=== PATIENT | male | born 1980 | race African-American/Black ===

== ENCOUNTER 2018-05-27 08:09 | Emergency (ER) | payer SELFPAY ==
[~2018-05-27] VITALS: Ht 165.1 cm; Wt 79.4 kg
[2018-05-27 08:16] VITALS: BP 120/68
--- NOTE | 2018-05-27 09:03 | RAD ---
RIBS LEFT AND PA CHEST History: Fall 1 week ago, mid left rib pain Comparison: None. Findings: Single view of the chest and 2 additional views of the left ribs are submitted. There is no infiltrate, pleural fluid, pneumothorax. Heart size is within normal limits. There is very mild smooth thoracic dextroscoliosis. There may be nondisplaced fracture of the left anterolateral seventh rib. Impression: 1. There may be nondisplaced fracture of the left anterolateral seventh rib. Electronically signed by: Roney Baugh MD (05/27/2018 9:00 AM) [id number]
[2018-05-27] MEDS ORDERED: NAPR-683 PO (09:14)
[2018-05-27] MEDS ORDERED: HYDR-3164 PO (09:14)
--- NOTE | 2018-05-27 09:15 | PHYS DOC ---
Past Medical History Past Medical History: No Pertinent History Past Surgical History: No Surgical History Additional Information: 2-1 ppd Alcohol Use: Rarely Drug Use: Marijuana Adult General Chief Complaint Chief Complaint: RIB PAIN [facility] HPI Patient is a 38 year old male who presents with complaint of left-sided rib pain after falling approximately a week ago. Patient states that he had hoped the pain would improve but pain has continued. Patient states that pain is worsened with movement of his left shoulder as well as deep breathing. He denies any cough or shortness breath. He states that nothing is improving his pain. Review of Systems Review of Systems Constitutional: Denies fever or chills [] Respiratory: Denies cough or shortness of breath [] Cardiovascular: No additional information not addressed in HPI [] GI: Denies abdominal pain, nausea, vomiting or diarrhea [] Musculoskeletal: Denies back pain or joint pain [] All other systems were reviewed and found to be within normal limits, except as documented in this note. Allergies Allergies Allergies Coded Allergies Type Severity Reaction Last Updated Verified No Known Drug Allergies 05/27/18 No Physical Exam Physical Exam Constitutional: Well developed, well nourished, no acute distress, non-toxic appearance. [] HENT: Normocephalic, atraumatic, bilateral external ears normal, oropharynx moist, no oral exudates, nose normal. [] Eyes: PERRLA, EOMI, conjunctiva normal, no discharge. [] Neck: Normal range of motion, no tenderness, supple, no stridor. [] Cardiovascular: Regular rate and rhythm, no murmur [] Lungs & Thorax: Bilateral breath sounds clear to auscultation. There is reproducible tenderness to palpation around the left mid to lower anterolateral rib margin. [] Abdomen: Bowel sounds normal, soft, no tenderness. [] Skin: Warm, dry, no erythema, no rash. [] Extremities: No tenderness, no cyanosis, no clubbing, ROM intact, no edema. [] Neurologic: Alert and oriented X 3, normal motor function, normal sensory function, no focal deficits noted. [] Current Patient Data Vital Signs Vital Signs Date Time Temp Pulse Resp B/P (MAP) Pulse Ox O2 Delivery O2 Flow Rate FiO2 05/27/18 08:16 97.6 85 18 120/68 (85) 100 Room Air 97.6 EKG EKG [] Radiology/Procedures Radiology/Procedures [] Impressions: Left rib series demonstrates possible nondisplaced left-sided rib fracture Course & Med Decision Making Course & Med Decision Making Pertinent Labs and Imaging studies reviewed. (See chart for details) [] Dragon Disclaimer Dragon Disclaimer This electronic medical record was generated, in whole or in part, using a voice recognition dictation system. Departure Departure Impression: Primary Impression: Rib fracture Disposition: HOME, SELF-CARE Condition: STABLE Patient Instructions: Rib Fracture Scripts Naproxen (NAPROSYN) 500 Mg Tablet 1 TAB PO BID PRN for PAIN, #20 TAB Prov: RHIANNON OGDEN Jr. DO 05/27/18 Hydrocodone/Apap 5-325 (NORCO 5-325 TABLET) 1 Each Tablet 1 EACH PO PRN Q6HRS PRN for PAIN, #15 as needed for pain Prov: RHIANNON OGDEN Jr. DO 05/27/18 Problem Qualifiers Primary Impression: Rib fracture Encounter type: initial encounter Rib fracture type: single rib Fracture type: closed Laterality: left Qualified Codes: S22.32XA - Fracture of one rib, left side, initial encounter for closed fracture RHIANNON OGDEN Jr. DO May 27, 2018 09:15
== END 2018-05-27 09:23 | disposition home or self-care (01) ==
LOC: ER 08:09
DX: S22.32XA Fracture of one rib, left side, initial encounter for closed fracture (principal); F17.200 Nicotine dependence, unspecified, uncomplicated; W18.30XA Fall on same level, unspecified, initial encounter; Y93.89 Activity, other specified; Y92.89 Other specified places as the place of occurrence of the external cause; Y99.8 Other external cause status
CPT/HCPCS: 71101; 99283